=== PATIENT | male | born 1990 | race Caucasian/White ===

== ENCOUNTER 2016-10-26 06:09 | Day surgery (SDC) | payer BC ==
[~2016-10-26] VITALS: Ht 185.4 cm; Wt 81.6 kg
[2016-10-26] MEDS ORDERED: LIDOCAINE 2% PF Vial for OR 5 ML VIAL. ONE (06:54)
[2016-10-26] MEDS ORDERED: DEXAMETHASONE SOD PHOS 20 MG/5 ML VIAL. ONE (06:54)
[2016-10-26] MEDS ORDERED: PROPOFOL 20 ML IV ONE (06:54)
[2016-10-26] MEDS ORDERED: ONDANSETRON PF 4 MG/2 ML VIAL. ONE (06:54)
[2016-10-26] MEDS ORDERED: IV RINGERS,LACTATED 1000ML 1,000 ML IV SCH (07:00)
[2016-10-26] MEDS ORDERED: HYDROmorphone 2 MG/ML VIAL IV PRN (07:00)
[2016-10-26] MEDS ORDERED: LIDOCAINE 1% 1 ML SYRINGE. ID PRN (07:00)
[2016-10-26] MEDS ORDERED: MORPHINE SULFATE 2 MG/ML DISP.SYRIN. IV PRN (07:00)
[2016-10-26] MEDS ORDERED: ONDANSETRON PF 4 MG/2 ML VIAL. IV PRN (07:00)
[2016-10-26] MEDS ORDERED: fentaNYL PF VIAL 100 MCG/2 ML VIAL IV PRN (07:00)
[2016-10-26] MEDS ORDERED: PROCHLORPERAZINE 10 MG/2 ML VIAL. IV PRN (07:00)
[2016-10-26] MEDS ORDERED: BUPIVACAINE MPF 0.5% 30 ML VIAL. ONE (07:06)
[2016-10-26] MEDS ORDERED: LIDOCAINE 1% 20 ML VIAL. ONE (07:07)
[2016-10-26] MEDS ORDERED: FAMOTIDINE 20 MG/2 ML VIAL ONE (07:10)
[2016-10-26] MEDS ORDERED: fentaNYL PF VIAL 100 MCG/2 ML VIAL ONE (07:10)
[2016-10-26] MEDS ORDERED: MIDAZOLAM HCL/PF 2 MG/2 ML VIAL. ONE ×2 (07:10→07:30)
--- NOTE | 2016-10-26 07:27 | DISCH ---
DISCHARGE INSTRUCTIONS Condition on Discharge Condition on Discharge: Stable Activity After Discharge Activity Instructions for Disc: Other, see below Bathing Instructions: Shower-keep dressing dry Weight Bearing Status after Di: Non weight bearing Diet after Discharge Diet after Discharge: Regular Wound Incision Care Wound/Incision Care: Ice to area for comfort, Keep wound/cast CDI, Keep wound elevated, Do not change dressing Contacting the DRStalin after DC Call your doctor for: Concerns you may have Follow-Up Follow up with: Maria G in 2wks Treatment/Equipment after DC Adaptive Equipment Issued: None DEE DEE MANN II, MD October 26, 2016 07:27
--- NOTE | 2016-10-26 07:28 | PDOC ---
BRIEF OPERATIVE NOTE Date: October 26, 2016 Pre-Op Diagnosis R 5th Metacarpal fx Post-Op Diagnosis same Procedure Performed ORIF R 5th metacarpal fx Surgeon Maria G Anesthesiologist [facility] Anesthesia Type: General, Local Blood Loss 10mL Complications none DEE DEE MANN II, MD October 26, 2016 07:28
[2016-10-26] MEDS ORDERED: KETAMINE HCL 500 MG/10 ML VIAL. ONE (07:30)
[2016-10-26] MEDS ORDERED: PROPOFOL 50 ML IV ONE (07:32)
[2016-10-26] MEDS ORDERED: SEVOFLURANE 31 TO 60 MINUTES. IH ONE (08:14)
[2016-10-26] MEDS: fentaNYL PF VIAL 100 MCG/2 ML VIAL IV PRN ×2 (08:55→09:11)
[2016-10-26] MEDS ORDERED: HYDR-965 PO (09:58)
[2016-10-26] MEDS ORDERED: HYDROcodone/APAP 7.5/325MG 1 TAB TABLET PO ONE ×2 (10:00→10:15)
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
[2016-10-26 10:40] VITALS: BP 127/53
== END 2016-10-26 10:50 | disposition home or self-care (01) ==
LOC: SURG 06:09
PROVIDERS: ATTEND Orthopaedic Surgery Sports Medicine
DX: S62.326A Displaced fracture of shaft of fifth metacarpal bone, right hand, initial encounter for closed fracture (principal); X58.XXXA Exposure to other specified factors, initial encounter; Y93.89 Activity, other specified; Y92.9 Unspecified place or not applicable; Y99.8 Other external cause status; Z87.39 Personal history of other diseases of the musculoskeletal system and connective tissue; Z72.89 Other problems related to lifestyle; F19.90 Other psychoactive substance use, unspecified, uncomplicated
CPT/HCPCS: 26615; 76000; C1713; J0690; J1100; J2250; J2405; J2704; J3010; J3490; S0028